=== PATIENT | female | born 1975 | race Caucasian/White ===

== ENCOUNTER 2018-04-08 14:08 | Emergency (ER) | payer MEDICAID ==
[~2018-04-08] VITALS: Ht 162.6 cm; Wt 74.0 kg
[2018-04-08 14:33] VITALS: BP 113/77
[2018-04-08] MEDS ORDERED: DEXAMETHASONE 4 MG TABLET ONE (14:47)
[2018-04-08] MEDS ORDERED: DEXAMETHASONE 4 MG TABLET PO ONE (15:00)
== END 2018-04-08 15:31 | disposition home or self-care (01) ==
LOC: ED 14:58
DX: J02.9 Acute pharyngitis, unspecified (principal); B34.9 Viral infection, unspecified; H92.03 Otalgia, bilateral; E11.9 Type 2 diabetes mellitus without complications
CPT/HCPCS: 87081; 87880; 99283

== ENCOUNTER 2018-06-04 05:43 | Emergency (ER) | payer MEDICAID ==
[~2018-06-04] VITALS: Ht 162.6 cm; Wt 76.3 kg
--- NOTE | 2018-06-04 06:10 | NUR ---
Pt c/o bilateral lower abdominal pain. +Etoh tonight per patient. Hx diabetes, "havent taken meds in about a years" denies any other s/s upon RN assesment. FSBS [id number]
[2018-06-04] MEDS ORDERED: SODIUM CHLORIDE 0.9% 1,000ML IVBOLUS ONE (06:30)
[2018-06-04] MEDS ORDERED: SODIUM CHLORIDE FLUSH 10ML SYR IVF ONE (06:30)
[2018-06-04 06:50] LABS: MICROSCOPIC NOT IND
[2018-06-04 06:51] LABS: CULTURE INDICATED? NO; HCG UR SG > 1.030 (1.003-1.030)
[2018-06-04 06:56] LABS: MEAN CORPUSCULAR HEMOGLOBIN 32.5 pg (27.0-34.8); MEAN CORPUSCULAR HGB CONC 34.8 g/dL (32.4-35.8); MEAN CORPUSCULAR VOLUME 93.4 fL (80-100); MEAN PLATELET VOLUME 8.7 fL (7.4-10.4); PLATELET COUNT 213 x10^3/uL (130-400); RED BLOOD COUNT 4.28 x10^6/uL (3.82-5.3); RED CELL DISTRIBUTION WIDTH 12.7 % (9.6-15.2)
[2018-06-04 07:07] LABS: ALANINE AMINOTRANSFERASE 35 U/L (12-78); ALBUMIN 3.4 g/dL (3.4-5.0); ANION GAP 15 mmol/L (5-15); CALCIUM 8.9 mg/dL (8.5-10.1); CHLORIDE 101 mmol/L (98-107); CREATININE 0.79 mg/dL (0.55-1.02)
[2018-06-04 07:10] LABS: ALKALINE PHOSPHATASE 154 U/L (45-117); BILIRUBIN,TOTAL 0.3 mg/dL (0.2-1.0); TOTAL PROTEIN 7.3 g/dL (6.4-8.2)
[2018-06-04 07:35] LABS: MD YES
[2018-06-04 07:42] LABS: MONOS#(MANUAL) 0.68 x10^3/uL (0.3-2.7); MONOS% (MANUAL) 9 % (2-9); SEGS% (MANUAL) 24 % (42-75)
[2018-06-04 07:43] LABS: <PLATELET ESTIMATE> ADEQUATE; <PLT MORPHOLOGY> NORMAL PLT MORPH; <RBC MORPHOLOGY> NORMAL; LYMPH#(MANUAL) 3.98 x10^3/uL (1-3.4); LYMPHS% (MANUAL) 53 % (22-44); REACTIVE LYMPHS # (MANUAL) 1.05 x10^3/uL (0-0); REACTIVE LYMPHS % (MANUAL) 14 % (0-0)
[2018-06-04 08:19] VITALS: BP 95/53
--- NOTE | 2018-06-04 08:24 | NUR ---
Patient/Caregiver given discharge instructions and they have confirmed that they understand the instructions. Patient ambulatory with steady gait.
== END 2018-06-04 08:37 | disposition home or self-care (01) ==
LOC: ED 08:14
DX: R10.32 Left lower quadrant pain (principal); E11.65 Type 2 diabetes mellitus with hyperglycemia
CPT/HCPCS: 74021; 80053; 81003; 81025; 82962; 83690; 85025; 96360; 99284; J7030

== ENCOUNTER 2018-06-18 12:31 | Emergency (ER) | payer MEDICAID ==
[~2018-06-18] VITALS: Ht 162.6 cm; Wt 73.0 kg
[2018-06-18 12:34] VITALS: BP 112/80
--- NOTE | 2018-06-18 12:57 | NUR ---
BILATERAL EAR AND THROAT PAIN
== END 2018-06-18 13:12 | disposition home or self-care (01) ==
LOC: ED 13:06
DX: J02.0 Streptococcal pharyngitis (principal); H92.03 Otalgia, bilateral
CPT/HCPCS: 99283

== ENCOUNTER 2019-05-29 13:05 | Emergency (ER) | payer MEDICAID ==
[~2019-05-29] VITALS: Ht 162.6 cm; Wt 77.5 kg
[2019-05-29 13:07] VITALS: BP 127/79
[2019-05-29] MEDS ORDERED: DEXAMETHASONE 4 MG TABLET PO ONE (13:30)
[2019-05-29] MEDS ORDERED: DEXAMETHASONE 4 MG/ML, 5ML ONE (13:40)
[2019-05-29 13:58] LABS: RAPID INFLUENZA A Negative (Negative); RAPID INFLUENZA B Negative (Negative)
== END 2019-05-29 14:28 | disposition home or self-care (01) ==
LOC: ED 14:17
DX: J02.9 Acute pharyngitis, unspecified (principal); R05 Cough; H92.03 Otalgia, bilateral; E11.9 Type 2 diabetes mellitus without complications
CPT/HCPCS: 87081; 87400; 87880; 99283

== ENCOUNTER 2019-06-05 22:38 | Emergency (ER) | payer MEDICAID ==
[~2019-06-05] VITALS: Ht 162.6 cm; Wt 77.0 kg
--- NOTE | 2019-06-06 00:35 | NUR ---
TO ROOM FROM LOBBY, AMBULATE WITH STEADY GAIT AND NAD
[2019-06-06 01:24] VITALS: BP 104/72
== END 2019-06-06 01:26 | disposition home or self-care (01) ==
LOC: ED 06-06 00:31
DX: J01.10 Acute frontal sinusitis, unspecified (principal); R51 Headache; J02.9 Acute pharyngitis, unspecified; E11.9 Type 2 diabetes mellitus without complications
CPT/HCPCS: 99283

== ENCOUNTER 2020-02-16 02:52 | Emergency (ER) | payer MEDICAID ==
[~2020-02-16] VITALS: Ht 162.6 cm; Wt 81.0 kg
[2020-02-16 02:57] VITALS: BP 122/77
== END 2020-02-16 03:31 | disposition home or self-care (01) ==
LOC: ED 03:00
DX: E11.65 Type 2 diabetes mellitus with hyperglycemia (principal); Z72.9 Problem related to lifestyle, unspecified; Z91.19 Patient's noncompliance with other medical treatment and regimen
CPT/HCPCS: 82962; 99282

== ENCOUNTER 2020-10-23 00:48 | Emergency (ER) | payer MEDICAID ==
[~2020-10-23] VITALS: Ht 162.6 cm; Wt 74.4 kg
[2020-10-23 00:56] VITALS: BP 122/85
--- NOTE | 2020-10-23 01:37 | NUR ---
PT PRESENTS TO ER FOR RIGHT ARM PAIN, PT STATES HER MUSCLES WERE REALLY TIGHT AND TENSE, PROVIDER AT BEDSIDE TO DISCUSS POC
--- NOTE | 2020-10-23 02:00 | NUR ---
pt laying in bed, a/ox4, all needs in reach, call light in reach, NAD at this time
--- NOTE | 2020-10-23 02:03 | NUR ---
PT GIVEN SCRIPTS FOR PAIN AND MUSCLE RELAXER, PT INFORMED TO FOLLOW UP WITH PRIMARY, PT AGREES TO POC, PT DISCHARGED IN NAD
== END 2020-10-23 02:05 | disposition home or self-care (01) ==
LOC: ED 01:30
DX: S46.811A Strain of other muscles, fascia and tendons at shoulder and upper arm level, right arm, initial encounter (principal); S44.8X1A Injury of other nerves at shoulder and upper arm level, right arm, initial encounter; E11.65 Type 2 diabetes mellitus with hyperglycemia; X58.XXXA Exposure to other specified factors, initial encounter; Y93.89 Activity, other specified; Y92.009 Unspecified place in unspecified non-institutional (private) residence as the place of occurrence of the external cause; Y99.8 Other external cause status
CPT/HCPCS: 82962; 99283

== ENCOUNTER 2020-11-26 20:19 | Inpatient (IN) | payer MEDICAID ==
[~2020-11-26] VITALS: Ht 162.6 cm; Wt 71.0 kg
--- NOTE | 2020-11-26 20:44 | NUR ---
EKG IN TRIAGE
--- NOTE | 2020-11-26 21:40 | NUR ---
PT DIAGNOSED WITH COVID + ON . PT C/O COUGH, FATIGUE, SPUTUM PRODUCTION, SOB, DECREASED APETITE AND LIGHT HEADED. PT ATTACHED TO CARD/SP02 MONITORS. VSS. APPEAR TO HAVE TROUBLE BREATHING BED IN LOW, RAILS ENGAGED, CALL LIGHT ON LAP. WCTM RESP ISO PUT INTO PLACE.
[2020-11-26 21:52] LABS: BASOPHILS % (AUTO) 0 % (0-1); EOSINOPHILS % (AUTO) 1 % (1-7); LYMPHOCYTES % (AUTO) 24 % (22-44); MEAN CORPUSCULAR HGB CONC 35.5 g/dL (32.4-35.8); MEAN PLATELET VOLUME 8.3 fL (7.4-10.4); MONOCYTES % (AUTO) 11 % (2-9); NEUTROPHILS % (AUTO) 64 % (42-75); PLATELET COUNT 457 x10^3/uL (130-400); RED CELL DISTRIBUTION WIDTH 12.7 % (9.6-15.2)
[2020-11-26 22:00] LABS: ALBUMIN 2.4 g/dL (3.4-5.0); ANION GAP 11 mmol/L (5-15); CALCIUM 8.9 mg/dL (8.5-10.1); CHLORIDE 96 mmol/L (98-107); CREATININE 0.66 mg/dL (0.55-1.02)
[2020-11-26 22:04] LABS: TROPONIN I < 0.015 ng/mL (0.000-0.045)
[2020-11-26] MEDS ORDERED: METF500T17 PO (22:44)
[2020-11-26] MEDS ORDERED: INSULIN (22:44)
--- NOTE | 2020-11-26 22:44 | NUR ---
Patient is resting comfortably in bed. Bed in lowest, rails engaged, call light on lap. Vital Signs within normal limits. WCTM. NADN
--- NOTE | 2020-11-26 22:45 | NUR ---
PT POOR HISTORIAN FOR MED REC
[2020-11-26] MEDS ORDERED: ONDANSETRON 2MG/ML, 2ML IVPush PRN (23:30)
[2020-11-26] MEDS ORDERED: ACETAMINOPHEN 325 MG TABLET PO PRN (23:30)
--- NOTE | 2020-11-26 23:53 | NUR ---
pt transferred off unit. nadn. no acute changes noted
[2020-11-26 23:54] VITALS: BP 97/71
[2020-11-27] MEDS ORDERED: POTASSIUM CHLORIDE 20 MEQ TAB.ER.PRT PO ONE
[2020-11-27 00:06] LABS: ALBUMIN 2.4 g/dL (3.4-5.0); BILIRUBIN, DIRECT 0.2 mg/dL (0.1-0.2)
[2020-11-27 00:07] LABS: BILIRUBIN,INDIRECT 0.5 mg/dL (0.0-2.0); BILIRUBIN,TOTAL 0.7 mg/dL (0.2-1.0); TOTAL PROTEIN 7.8 g/dL (6.4-8.2)
[2020-11-27 00:26] LABS: C-REACTIVE PROTEIN, QUANT 9.9 mg/dL (0.02-0.49)
[2020-11-27] MEDS: INSULIN GLARGINE 100 UNITS/ML, PEN SQ-INSULIN SCH ×2 (00:56→21:01)
[2020-11-27] MEDS: DEXAMETHASONE 4 MG/ML, 1ML IVPush SCH ×2 (00:56→07:48)
[2020-11-27] MEDS: ENOXAPARIN 40 MG/0.4 ML SQ SCH ×2 (00:56→12:32)
[2020-11-27] MEDS: CEFTRIAXONE 1,000 MG in DEXTROSE 5% 50 ML IVPB SCH (01:15)
[2020-11-27] MEDS: AZITHROMYCIN 500 MG in SODIUM CHLORIDE 0.9% 250 ML IV SCH (01:51)
[2020-11-27 07:01] LABS: CHLORIDE 97 mmol/L (98-107)
[2020-11-27 07:05] LABS: ANION GAP 11 mmol/L (5-15); CREATININE 0.72 mg/dL (0.55-1.02)
[2020-11-27] MEDS: INSULIN LISPRO 100 UNITS/ML, PEN SQ-INSULIN SCH ×4 (07:47→21:02)
[2020-11-27 07:52] VITALS: BP 93/63
[2020-11-27 12:40] VITALS: BP 93/63
[2020-11-27] MEDS: GUAIFENESIN/DM 100-10MG, 5ML UDC PO PRN (21:03)
[2020-11-27 21:40] VITALS: BP 96/63
[2020-11-28] MEDS: GUAIFENESIN/DM 100-10MG, 5ML UDC PO PRN ×3 (00:58→20:40)
[2020-11-28] MEDS: CEFTRIAXONE 1,000 MG in DEXTROSE 5% 50 ML IVPB SCH (00:58)
[2020-11-28] MEDS: ENOXAPARIN 40 MG/0.4 ML SQ SCH ×2 (00:58→13:03)
[2020-11-28 01:38] VITALS: BP 95/60
[2020-11-28] MEDS: AZITHROMYCIN 500 MG in SODIUM CHLORIDE 0.9% 250 ML IV SCH (02:17)
[2020-11-28] MEDS: DEXAMETHASONE 4 MG/ML, 1ML IVPush SCH (08:32)
[2020-11-28] MEDS: INSULIN LISPRO 100 UNITS/ML, PEN SQ-INSULIN SCH ×4 (08:32→20:39)
[2020-11-28 08:38] VITALS: BP 94/64
[2020-11-28 08:50] LABS: BASOPHILS % (AUTO) 0 % (0-1); EOSINOPHILS % (AUTO) 0 % (1-7); LYMPHOCYTES % (AUTO) 25 % (22-44); MEAN CORPUSCULAR HEMOGLOBIN 32.2 pg (27.0-34.8); MEAN CORPUSCULAR HGB CONC 34.5 g/dL (32.4-35.8); MONOCYTES % (AUTO) 10 % (2-9); NEUTROPHILS % (AUTO) 65 % (42-75); PLATELET COUNT 555 x10^3/uL (130-400); RED BLOOD COUNT 4.08 x10^6/uL (3.82-5.3); RED CELL DISTRIBUTION WIDTH 12.4 % (9.6-15.2)
[2020-11-28 08:57] LABS: ALANINE AMINOTRANSFERASE 55 U/L (12-78); ALBUMIN 2.3 g/dL (3.4-5.0); ANION GAP 7 mmol/L (5-15); CALCIUM 8.6 mg/dL (8.5-10.1); CHLORIDE 102 mmol/L (98-107); CREATININE 0.72 mg/dL (0.55-1.02)
[2020-11-28 08:59] LABS: ALKALINE PHOSPHATASE 71 U/L (45-117); BILIRUBIN,TOTAL 0.4 mg/dL (0.2-1.0); TOTAL PROTEIN 7.1 g/dL (6.4-8.2)
[2020-11-28 09:00] LABS: D-DIMER 0.28 ug/mlFEU (0.00-0.52)
[2020-11-28] MEDS ORDERED: OMNIPAQUE 350 MG/ML, 100ML BOTTLE ONE (09:42)
[2020-11-28 14:44] VITALS: BP 103/72
[2020-11-28] MEDS: ASCORBIC ACID 500 MG TABLET PO SCH (16:35)
[2020-11-28 19:13] VITALS: BP 104/72
[2020-11-28] MEDS: INSULIN GLARGINE 100 UNITS/ML, PEN SQ-INSULIN SCH (20:39)
[2020-11-29] MEDS: ENOXAPARIN 40 MG/0.4 ML SQ SCH ×2 (01:00→01:10)
[2020-11-29] MEDS: CEFTRIAXONE 1,000 MG in DEXTROSE 5% 50 ML IVPB SCH (01:09)
[2020-11-29 01:16] VITALS: BP 107/74
[2020-11-29] MEDS: AZITHROMYCIN 500 MG in SODIUM CHLORIDE 0.9% 250 ML IV SCH (02:05)
[2020-11-29 07:30] LABS: BASOPHILS % (AUTO) 1 % (0-1); EOSINOPHILS % (AUTO) 0 % (1-7); LYMPHOCYTES % (AUTO) 26 % (22-44); MEAN CORPUSCULAR HEMOGLOBIN 32.3 pg (27.0-34.8); MEAN CORPUSCULAR HGB CONC 34.6 g/dL (32.4-35.8); MONOCYTES % (AUTO) 12 % (2-9); NEUTROPHILS % (AUTO) 60 % (42-75); PLATELET COUNT 603 x10^3/uL (130-400); RED BLOOD COUNT 3.99 x10^6/uL (3.82-5.3); RED CELL DISTRIBUTION WIDTH 12.5 % (9.6-15.2)
[2020-11-29 07:40] LABS: ANION GAP 5 mmol/L (5-15); CHLORIDE 103 mmol/L (98-107); CREATININE 0.69 mg/dL (0.55-1.02)
[2020-11-29] MEDS ORDERED: CEFDINIR 300 MG CAPSULE PO SCH (08:00)
[2020-11-29] MEDS ORDERED: CHOL500045 PO (08:04)
[2020-11-29] MEDS ORDERED: ZINC220C8 PO (08:04)
[2020-11-29] MEDS ORDERED: CEFD300C37 PO (08:04)
[2020-11-29] MEDS ORDERED: ASCO500T9 PO (08:04)
[2020-11-29] MEDS ORDERED: PRED10TA PO (08:04)
[2020-11-29] MEDS ORDERED: AZIT500T10 PO (08:04)
[2020-11-29] MEDS ORDERED: THIA100T67 PO (08:04)
[2020-11-29] MEDS ORDERED: GUAI5SYR PO (08:04)
[2020-11-29] MEDS: ASCORBIC ACID 500 MG TABLET PO SCH (08:23)
[2020-11-29] MEDS: INSULIN GLARGINE 100 UNITS/ML, PEN SQ-INSULIN SCH (08:24)
[2020-11-29] MEDS: INSULIN LISPRO 100 UNITS/ML, PEN SQ-INSULIN SCH (08:24)
[2020-11-29 08:55] VITALS: BP 117/83
[2020-11-29] MEDS ORDERED: AZITHROMYCIN 500 MG TABLET PO SCH (09:00)
[2020-11-29] MEDS ORDERED: ZINC SULFATE 220 MG CAPSULE PO SCH (09:00)
[2020-11-29] MEDS ORDERED: CHOLECALCIFEROL 5,000u TAB PO SCH (09:00)
[2020-11-29] MEDS ORDERED: THIAMINE 100MG TABLET PO SCH (09:00)
== END 2020-11-29 10:14 | disposition home or self-care (01) | DRG 177 ==
LOC: ED 21:15 → EDIP 23:04 → 4EST 23:55
PROVIDERS: ADMIT Family Medicine; ATTEND Internal Medicine
DX: U07.1 COVID-19 (principal); J12.82 Pneumonia due to coronavirus disease 2019; J96.01 Acute respiratory failure with hypoxia; E88.09 Other disorders of plasma-protein metabolism, not elsewhere classified; E87.6 Hypokalemia; E11.65 Type 2 diabetes mellitus with hyperglycemia; Z88.0 Allergy status to penicillin; Z79.899 Other long term (current) drug therapy
CPT/HCPCS: 36415; 71045; 71275; 80048; 80053; 80076; 82040; 82962; 83036; 83615; 84484; 85025; 85379; 85384; 85651; 86140; 93005; 93970; 99285; G0378; J0456; J0696; J1100; J1650; Q9967; J1815; J7050; J7512